=== PATIENT | male | born 1950 | race Caucasian/White ===

== ENCOUNTER 2019-07-01 22:46 | Emergency (ER) | payer MEDICARE ==
[2019-07-01] MEDS ORDERED: ZESTRIL20 M1 PO (23:01)
[2019-07-01] MEDS ORDERED: HYDROCHLOROTHIA50 M1 PO (23:01)
[2019-07-01 23:43] LABS: POTASSIUM 3.3 mmol/L (3.5-5.1)
[2019-07-01 23:44] LABS: CALCIUM 9.2 mg/dL (8.3-10.5)
[2019-07-01 23:51] LABS: MAGNESIUM 1.89 mg/dL (1.60-2.60)
[2019-07-01 23:54] LABS: D-DIMER 0.17 mg/L FEU (0.15-0.50)
[2019-07-02 00:02] VITALS: BP 127/80
== END 2019-07-02 00:08 ==
LOC: ED 22:46
PROVIDERS: Physician Assistant
DX: E86.0 Dehydration (principal); E87.6 Hypokalemia; I10 Essential (primary) hypertension